=== PATIENT | male | born 1975 | race Caucasian/White ===

== ENCOUNTER → 2022-03-11 11:59 | Outpatient (CLI) | payer OTHER, MEDICAID, SELFPAY ==
[2022-03-11 13:04] LABS: COVID19 -Nasal RAPID Negative (Negative)
== END ==
PROVIDERS: PCP Student in an Organized Health Care Education/Training Program; Referring Provider Student in an Organized Health Care Education/Training Program; Visit Provider Student in an Organized Health Care Education/Training Program
DX: Z20.822 Contact with and (suspected) exposure to COVID-19 (principal)
CPT/HCPCS: 87635; C9803

== ENCOUNTER → 2022-03-12 10:39 | Outpatient (CLI) | payer OTHER, MEDICAID, SELFPAY ==
--- NOTE | 2022-03-17 11:01 | PM.PFT.1 ---
Pulmonary Function Test Referral & Results Date Patient Seen: 03/12/22 Requesting provider: Haseeb Kent Results: The spirometry demonstrates an FVC of 4.0 L which is 86% of predicted. The FEV1 was measured at 3.43 L which is 94% of predicted. The FEV1/FVC ratio was 86 which is 109% of predicted. Following the administration of bronchodilator there was no appreciable change to above normal numbers Lung volumes show an SVC of 4.02 L which is 88% of predicted. The diffusing capacity was measured at 20.27 which is 99% of predicted. The maximum voluntary ventilation was normal Interpretation: This study demonstrates normal pulmonary function
== END ==
PROVIDERS: PCP Student in an Organized Health Care Education/Training Program; Referring Provider Student in an Organized Health Care Education/Training Program; Visit Provider Student in an Organized Health Care Education/Training Program
DX: U07.1 COVID-19 (principal); J12.82 Pneumonia due to coronavirus disease 2019; Z86.16 Personal history of COVID-19
CPT/HCPCS: 94060; 94726; 94729

== ENCOUNTER 2023-02-19 14:33 | Emergency (ER) | payer OTHER, MEDICAID, SELFPAY ==
[2023-02-19] VITALS (8 sets, daily range): BP systolic 137–155; BP diastolic 62–86; PULSE 88–96; RESP 16; TEMP 36.6; O2SAT 93–97; BMI 32.3
[2023-02-19 15:05] LABS: Add Manual Diff / Slide Review NO; Basophils Absolute Auto 0 /uL (0-100); Basophils Percent Auto 0.4 % (0-2); Eosinophils Absolute Auto 400 /uL (0-450); Eosinophils Percent Auto 4.5 % (2-4); Hematocrit 48.2 % (41-53); Hemoglobin 16.5 g/dL (13.5-17.5); Lymphocytes Absolute Auto 1300 /uL (1100-4500); Lymphocytes Percent Auto 13.4 % (25-40); Mean Corpuscular HGB Conc 34.1 % (30-36); Mean Corpuscular Hemoglobin 31.8 PG (26-34); Mean Corpuscular Volume 93.2 fL (80-100); Monocytes Absolute Auto 800 /uL (0-900); Monocytes Percent Auto 8.1 % (3-14); Neutrophils Absolute Auto 6900 /uL (1500-7000); Neutrophils Percent Auto 73.6 % (50-75); Platelet Count 239 X10^3/uL (150-400); Red Blood Cell Count 5.18 X10^6/uL (4.5-5.9); Red Cell Distribution Width 15.1 % (11.6-14.8); White Blood Cell Count 9.4 X10^3/uL (4.5-11.0)
[2023-02-19 15:21] LABS: Alanine Aminotransferase 31 IU/L (<50); Albumin 3.9 g/dL (3.5-5.0); Albumin Globulin Ratio 1.2 (1.0-2.8); Alkaline Phosphatase 66 U/L (38-126); Aspartate Aminotransferase 40 IU/L (17-59); Bilirubin Total 0.6 mg/dL (0.2-1.3); Blood Urea Nitrogen 19 mg/dL (9-20); Calcium 9.8 mg/dL (8.4-10.2); Carbon Dioxide 27 mmol/L (22-32); Chloride 103 mmol/L (98-107); Estimated Glomerular Filt Rate > 60 mL/min (>60); Globulin 3.2 g/dL (1.7-4.1); Glucose 156 mg/dL (70-100); Lipase 427 U/L (23-300); Potassium 4.3 mmol/L (3.4-5.1); Sodium 137 mmol/L (137-145); Total Protein 7.1 g/dL (6.3-8.2)
[2023-02-19 15:22] LABS: HEMOLYSIS 82 (0-50)
[2023-02-19 15:24] LABS: Bacteria Urine Occasional (0-1); Culture Indicated Urine Specimen Cultured; Mucus Urine 1+ (Negative); RBC Urine 1-5/HPF (0-5/HPF); Squamous Epithelial Cell Urine 1-5 /HPF (0-5/HPF); WBC Urine 5-10/HPF (0-5/HPF)
--- NOTE | 2023-02-19 15:27 | DI.CT.S_ITS ---
PROCEDURE: CT KIDNEY URETER BLADDER (KUB) INDICATIONS: Left CVA Tenderness and left abd pain TECHNIQUE: Axial sections were acquired from the lung bases to the pubic symphysis. Coronal and sagittal reformats were performed. For radiation dose reduction, the following was used: automated exposure control, adjustment of mA and/or kV according to patient size. COMPARISON: None. FINDINGS: Image quality: Excellent. Lung bases: Unremarkable. Heart: No significant findings. URINARY: Right Kidney: Nonobstructing right-sided kidney stones are seen that measure up to 7 mm and 300 Hounsfield units. Right Ureter: No hydroureter. Left Kidney: There is moderate left-sided hydronephrosis. Nonobstructing left-sided kidney stones are seen that measure up to 6 mm (200 Hounsfield units). Left Ureter: There is a 6 mm obstructing stone seen at the left ureterovesicular junction, as on series 2, image 76 and on series 4, image 39. This stone demonstrates a density 500 Hounsfield units. There is associated mild to moderate left-sided hydroureter. Bladder: Normal wall thickness. No stones. ABDOMEN: Liver: Unremarkable. Gallbladder: Unremarkable. Biliary ducts: Unremarkable. Pancreas: Unremarkable. Spleen: Unremarkable. Adrenal Glands: Unremarkable. Stomach and Bowel: Stomach, small bowel loops, and colon are unremarkable. Colonic diverticulosis is seen, without findings of active diverticulitis. Peritoneum: No abnormal intraperitoneal fluid. No free air. Ventral Wall: No hernia. Abdominal Nodes: No enlarged retroperitoneal or mesenteric lymph nodes. Vessels: Aorta and inferior vena cava are normal in size. PELVIS: Pelvic Organs: Unremarkable. Pelvic Nodes: Unremarkable. Miscellaneous: No inguinal hernias are seen. Bones: There is S shaped scoliosis. There is a left yuridia vertebral body seen between the T11 and T12 levels. IMPRESSION: There is a 6 mm obstructing stone seen at the left ureterovesicular junction, with associated left-sided hydroureter and hydronephrosis. Nonobstructing bilateral renal stones are seen. Additional findings: Left-sided yuridia vertebral body between T11 and T12 S shaped scoliosis Dictated by: Ru Ramirez M.D. on 02/19/2023 at 15:41 Approved by: Ru Ramirez M.D. on 02/19/2023 at 15:45
[2023-02-19] MEDS: KETOROLAC 30 MG/ML VIAL 15 MG IV (15:31)
--- NOTE | 2023-02-19 15:36 | ED_ITS ---
HPI - Abdominal Pain <VETO Koehler - Last Filed: 02/19/23 17:05> General Chief Complaint: Abdominal Pain Stated Complaint: abdominal pain in left side down into groin Time Seen by Provider: 02/19/23 14:35 History of Present Illness HPI narrative: 48-year-old male presents to the emergency department with left-sided abdominal pain and flank pain on and off x3 days. Patient reports the pain became constant and intolerable earlier today. Patient reports that he has had a kidney stone over 20 years ago and this feels identical. Patient has also reported inconsistent urinary stream and non complete defecation over the last 3 days. Patient endorses that he has a pulling sensation along his left side of abdomen that is resolved with pulling down his left testicle. Patient denies any testicular pain, scrotal swelling, penile discharge or dysuria. 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 Related Data Previous Rx's Medication Instructions Recorded oxycodone-acetaminophen 5 mg-325 1 tab PO Q4-6H PRN pain #10 tabs 02/19/23 mg tablet (Percocet) oxycodone-acetaminophen 5 mg-325 1 tab PO Q4-6H PRN pain #10 tabs 02/19/23 mg tablet (Percocet) tamsulosin 0.4 mg capsule (Flomax) 0.4 mg PO DAILY #7 caps 02/19/23 tamsulosin 0.4 mg capsule (Flomax) 0.4 mg PO DAILY #7 caps 02/19/23 Review of Systems <VETO Koehler - Last Filed: 02/19/23 17:05> Review of Systems Narrative: Narrative: See HPI. GENERAL: Denies chills, fatigue, fever, sweats. HEENT: Denies sinus pain, ear pain, sore throat, difficulty swallowing, dizziness. RESPIRATORY: Denies dyspnea, cough, wheezing, sputum. CARDIOVASCULAR: Denies chest pain, palpitations, edema. GASTROINTESTINAL: Denies nausea, vomiting, diarrhea, constipation. Endorses left-sided abdominal pain. : Denies dysuria, frequency, incontinence, hematuria, urinary retention, penile discharge, testicular pain or scrotal swelling. Endorses left-sided flank pain. MSK: Denies weakness, joint pain, or bony pain. SKIN: Denies rash, skin lesions, or pruritis. NEUROLOGIC: Denies weakness, dizziness, headache, numbness, confusion. Exam <VETO Koehler - Last Filed: 02/19/23 17:05> Narrative Exam Narrative: Exam Narrative: GENERAL: This is a well-nourished, well-developed patient, in no acute distress. HEAD: Atraumatic. Normocephalic. EYES: Pupils equal round and reactive. Extraocular motions intact. No scleral icterus, injection or drainage. ENT: Nose without bleeding, purulent drainage. Airway patent. NECK: Trachea midline. No JVD or lymphadenopathy. Nontender. CARDIOVASCULAR: Regular rate and rhythm without murmurs, peripheral pulses intact, cap refill <2 sec. RESPIRATORY: Breath sounds equal and clear bilaterally. No wheezes, rales, or rhonchi. No cough. No increased respiratory effort. No accessory muscle use. GASTROINTESTINAL: Abdomen soft, non-tender, nondistended without guarding or rebound. No suprapubic pain. Patient is circumcised, no testicular pain, scrotal swelling and with positive cremaster reflex. MSK: Moves all extremities. Normal range of motion, no clubbing or edema. Neurovascularly intact. NEURO: A&O x 3. SKIN: Warm, dry, no rashes or lesions noted. Initial Vital Signs Initial Vital Signs: Vital Signs Pulse Rate 93 H 02/19/23 14:45 Blood Pressure 155/86 H 02/19/23 14:45 Pulse Oximetry 95 02/19/23 14:45 Reviewed <Nicol Luis DO - Last Filed: 02/22/23 07:00> Initial Vital Signs Initial Vital Signs: Vital Signs Pulse Rate 93 H 02/19/23 14:45 Blood Pressure 155/86 H 02/19/23 14:45 Pulse Oximetry 95 02/19/23 14:45 Course <VETO Koehler - Last Filed: 02/19/23 17:05> Orders Ordered: Discontinued Medications Ketorolac Tromethamine (Ketorolac 30 Mg/Ml Vial) 15 mg IV NOW ONE Stop: 02/19/23 15:29 Last Admin: 02/19/23 15:31 Dose: 15 mg Documented By: DIONNA Ondansetron HCl (Ondansetron 4 Mg/2 Ml Inj) 4 mg IV NOW PRN PRN Reason: Nausea And Vomiting Vital Signs Vital signs: Vital Signs - 8 hr 02/19/23 14:53 Temperature 97.8 F Pulse Rate 88 Respiratory Rate 16 Blood Pressure 155/86 H Pulse Oximetry 97 Oxygen Delivery Method Room Air <Nicol Luis DO - Last Filed: 02/22/23 07:00> Orders Ordered: Discontinued Medications Ketorolac Tromethamine (Ketorolac 30 Mg/Ml Vial) 15 mg IV NOW ONE Stop: 02/19/23 15:29 Last Admin: 02/19/23 15:31 Dose: 15 mg Documented By: DIONNA Ondansetron HCl (Ondansetron 4 Mg/2 Ml Inj) 4 mg IV NOW PRN PRN Reason: Nausea And Vomiting Vital Signs Vital signs: Vital Signs - 8 hr 02/19/23 14:53 Temperature 97.8 F Pulse Rate 88 Respiratory Rate 16 Blood Pressure 155/86 H Pulse Oximetry 97 Oxygen Delivery Method Room Air MDM - Abdominal Pain <VETO Koehler - Last Filed: 02/19/23 17:05> Differential Diagnosis Differential diagnosis: Likely abdominal pain, calculus of kidney, constipation, small bowel obstruction and other (UTI) Lab Data 02/19/23 14:44 02/19/23 14:44 Labs: Lab Results 02/19/23 02/19/23 02/19/23 Range/Units 14:44 14:44 14:44 WBC 9.4 (4.5-11.0) X10^3/uL RBC 5.18 (4.5-5.9) X10^6/uL Hgb 16.5 (13.5-17.5) g/dL Hct 48.2 (41-53) % MCV 93.2 (80-100) fL MCH 31.8 (26-34) PG MCHC 34.1 (30-36) % RDW 15.1 H (11.6-14.8) % Plt Count 239 (150-400) X10^3/uL Neut % (Auto) 73.6 (50-75) % Lymph % (Auto) 13.4 L (25-40) % [place] % (Auto) 8.1 (3-14) % Eos % (Auto) 4.5 H (2-4) % Baso % (Auto) 0.4 (0-2) % Neut # (Auto) 6900 (0499-7808) /uL Lymph # (Auto) 1300 (8840-2265) /uL [place] # (Auto) 800 (0-900) /uL Eos # (Auto) 400 (0-450) /uL Baso # (Auto) 0 (0-100) /uL Sodium 137 (137-145) mmol/L Potassium 4.3 (3.4-5.1) mmol/L Chloride 103 (98-107) mmol/L Carbon Dioxide 27 (22-32) mmol/L BUN 19 (9-20) mg/dL Creatinine 1.27 H (0.66-1.25) mg/dL Estimated GFR > 60 (>60) mL/min BUN/Creatinine Ratio 15.0 (6-22) Glucose 156 H (70-100) mg/dL Calcium 9.8 (8.4-10.2) mg/dL Total Bilirubin 0.6 (0.2-1.3) mg/dL AST 40 (17-59) IU/L ALT 31 (<50) IU/L Alkaline Phosphatase 66 (38-126) U/L Total Protein 7.1 (6.3-8.2) g/dL Albumin 3.9 (3.5-5.0) g/dL Globulin 3.2 (1.7-4.1) g/dL Albumin/Globulin Ratio 1.2 (1.0-2.8) Lipase 427 H (23-300) U/L Urine RBC 1-5/hpf (0-5/HPF) Urine WBC 5-10/hpf H (0-5/HPF) Ur Squamous Epith Cells 1-5 /hpf (0-5/HPF) Urine Bacteria Occasional (0-1) (None) Urine Mucus 1+ H (Negative) Ur Culture Indicated? Specimen cultured Point of care testing: Urine Dip Bedside Urine Glucose Negative Bedside Urine Bilirubin - Negative Bedside Urine Ketone +/- 5 Urine Specific [place] 1.025 Bedside Urine Occult Blood +++ Bedside Urine pH 6.0 Bedside Urine Protein + 30 Bedside Urine Urobilinogen - Negative Bedside Urine Nitrite - Negative Bedside Urine Leukocytes - Negative Esterase Imaging Data CT scan - abdomen/pelvis: Radiologist's Impression: [address] [address] [address] Scan Report Signed Patient: Khris Kearney MR#: [id number] : 1975 Acct:[id number] Age/Sex: 48 / M Date of Service: 02/19/23 Loc: ED Accession Number: [id number] ?? Procedure: CT kidney ureter bladder (KUB) Ordering Provider: Calvin Carter PROCEDURE:? CT KIDNEY URETER BLADDER (KUB) ? INDICATIONS:? Left CVA Tenderness and left abd pain ? TECHNIQUE:? Axial sections were acquired from the lung bases to the pubic symphysis.? Coronal and sagittal reformats were performed.? For radiation dose reduction, the following was used: ?automated exposure control, adjustment of mA and/or kV according to patient size.? ? COMPARISON:? None. ? FINDINGS:? Image quality:? Excellent.? ? Lung bases:? Unremarkable.? ? Heart:? No significant findings. ? URINARY: Right Kidney:? Nonobstructing right-sided kidney stones are seen that measure up to 7 mm and 300 Hounsfield units. Right Ureter:? No hydroureter.? ? Left Kidney:? There is moderate left-sided hydronephrosis.? Nonobstructing left- sided kidney stones are seen that measure up to 6 mm (200 Hounsfield units).? Left Ureter:? There is a 6 mm obstructing stone seen at the left ureterovesicular junction, as on series 2, image 76 and on series 4, image 39.? This stone demonstrates a density 500 Hounsfield units.? There is associated mild to moderate left-sided hydroureter.? ? Bladder:? Normal wall thickness. No stones. ? ? ? ABDOMEN: Liver:? Unremarkable.? ? Gallbladder:? Unremarkable.? ? Biliary ducts:? Unremarkable.? ? Pancreas:? Unremarkable.? ? Spleen:? Unremarkable.? ? Adrenal Glands:? Unremarkable.? ? ? Stomach and Bowel:? Stomach, small bowel loops, and colon are unremarkable.? Colonic diverticulosis is seen, without findings of active diverticulitis. Peritoneum:? No abnormal intraperitoneal fluid.? No free air.? ? Ventral Wall: ? No hernia.? Abdominal Nodes:? No enlarged retroperitoneal or mesenteric lymph nodes.? Vessels:? Aorta and inferior vena cava are normal in size.? ? PELVIS: Pelvic Organs:? Unremarkable.? ? Pelvic Nodes: Unremarkable. Miscellaneous: No inguinal hernias are seen. ? ? ? Bones:? There is S shaped scoliosis.? There is a left yuridia vertebral body seen between the T11 and T12 levels. ? IMPRESSION:? ? There is a 6 mm obstructing stone seen at the left ureterovesicular junction, with associated left-sided hydroureter and hydronephrosis. ? Nonobstructing bilateral renal stones are seen. ? ? ? Additional findings:? Left-sided yuridia vertebral body between T11 and T12 S shaped scoliosis ? ? ? Dictated by: Ru Ramirez M.D. on 02/19/2023 at 15:41 ? ? Approved by: Ru Ramirez M.D. on 02/19/2023 at 15:45 ? MDM Narrative Medical decision making narrative: 48-year-old male, with history of kidney stone, presents to the emergency department with left-sided abdominal and CVA tenderness. Assessment was consistent with a kidney stone. Pain controlled with Toradol. CT reveals a 6 mm obstructing stone at the left ureterovesicular junction with associated left- sided hydroureter and hydronephrosis. Will treat with Flomax once daily x7 days, recommendations for Tylenol or ibuprofen for discomfort and a short prescription for Percocet for breakthrough pain. Instructed patient to follow- up with urology on Tuesday morning. Strict instructions that for any worsening symptoms, patient should come back to the emergency department. Patient and spouse verbalized understanding and were agreeable with course of action. <Nicol Luis, DO - Last Filed: 02/22/23 07:00> Lab Data Labs: Lab Results 02/19/23 02/19/23 02/19/23 Range/Units 14:44 14:44 14:44 WBC 9.4 (4.5-11.0) X10^3/uL RBC 5.18 (4.5-5.9) X10^6/uL Hgb 16.5 (13.5-17.5) g/dL Hct 48.2 (41-53) % MCV 93.2 (80-100) fL MCH 31.8 (26-34) PG MCHC 34.1 (30-36) % RDW 15.1 H (11.6-14.8) % Plt Count 239 (150-400) X10^3/uL Neut % (Auto) 73.6 (50-75) % Lymph % (Auto) 13.4 L (25-40) % [place] % (Auto) 8.1 (3-14) % Eos % (Auto) 4.5 H (2-4) % Baso % (Auto) 0.4 (0-2) % Neut # (Auto) 6900 (3456-4642) /uL Lymph # (Auto) 1300 (3586-1284) /uL [place] # (Auto) 800 (0-900) /uL Eos # (Auto) 400 (0-450) /uL Baso # (Auto) 0 (0-100) /uL Sodium 137 (137-145) mmol/L Potassium 4.3 (3.4-5.1) mmol/L Chloride 103 (98-107) mmol/L Carbon Dioxide 27 (22-32) mmol/L BUN 19 (9-20) mg/dL Creatinine 1.27 H (0.66-1.25) mg/dL Estimated GFR > 60 (>60) mL/min BUN/Creatinine Ratio 15.0 (6-22) Glucose 156 H (70-100) mg/dL Calcium 9.8 (8.4-10.2) mg/dL Total Bilirubin 0.6 (0.2-1.3) mg/dL AST 40 (17-59) IU/L ALT 31 (<50) IU/L Alkaline Phosphatase 66 (38-126) U/L Total Protein 7.1 (6.3-8.2) g/dL Albumin 3.9 (3.5-5.0) g/dL Globulin 3.2 (1.7-4.1) g/dL Albumin/Globulin Ratio 1.2 (1.0-2.8) Lipase 427 H (23-300) U/L Urine RBC 1-5/hpf (0-5/HPF) Urine WBC 5-10/hpf H (0-5/HPF) Ur Squamous Epith Cells 1-5 /hpf (0-5/HPF) Urine Bacteria Occasional (0-1) (None) Urine Mucus 1+ H (Negative) Ur Culture Indicated? Specimen cultured Point of care testing: Urine Dip Bedside Urine Glucose Negative Bedside Urine Bilirubin - Negative Bedside Urine Ketone +/- 5 Urine Specific [place] 1.025 Bedside Urine Occult Blood +++ Bedside Urine pH 6.0 Bedside Urine Protein + 30 Bedside Urine Urobilinogen - Negative Bedside Urine Nitrite - Negative Bedside Urine Leukocytes - Negative Esterase ECG Data Interpretation: Dr. Luis-sinus rhythm rate 9 NM 4 QRS [address] changes no T-wave inversions no priors to compare Discharge Plan Departure Patient Disposition: Home Clinical Impression: Calculus of kidney Instructions: DI for Kidney Stones Activity Restrictions/Additional Instructions: *You have been diagnosed with a obstructing 6 mm kidney stone and several nonobstructing stones. I will be prescribing Flomax to be taken once a day for the next 7 days. For the pain, I recommend you take ibuprofen or Tylenol for minor discomfort. I will prescribe Percocet for breakthrough pain. Please contact the urology clinic on Tuesday morning. For any worsening symptoms, please return to the emergency department. *What to do: *Please continue to take your regular medications as directed. [ x] New medication prescriptions sent to your pharmacy: [[facility]] [ ] New medication written as a paper prescription [ ] No new medications given *Please follow up with your primary care provider in 2-3 days, call for an appointment. Let them know you were seen in the Emergency Department and that we ask that you be seen in follow up. We will electronically transmit a record of today's note if your PCP is in our system *If you do not have a primary care provider please contact the [facility] Resource line at [phone]. They will ask some questions about your medical history and help get you set up with a doctor in the community. ? Return to ER if you should have any new, worsening or concerning symptoms, such as worsening pain, severe headache, confusion, chest pain, difficulty breathing, fever greater than 101 F, shaking chills, persistent vomiting to the point that you cannot drink fluids, or other new or worsening symptoms. Prescriptions: New tamsulosin [Flomax] 0.4 mg capsule 0.4 mg PO DAILY Qty: 7 0RF oxycodone-acetaminophen [Percocet] 5-325 mg tablet 1 tab PO Q4-6H PRN (Reason: pain) Qty: 10 0RF tamsulosin [Flomax] 0.4 mg capsule 0.4 mg PO DAILY Qty: 7 0RF oxycodone-acetaminophen [Percocet] 5-325 mg tablet 1 tab PO Q4-6H PRN (Reason: pain) Qty: 10 0RF Referrals: Haseeb Kent [Primary Care Provider] - Quinten Martinez MD [Physician] - Erlin Alexander MD [Physician] - Stand Alone Forms: Patient Portal/API <Nicol Luis DO - Last Filed: 02/22/23 07:00> Cosign ED Attending Cosadelinaature Attestation: I was immediately available in the department for consultation. Documentation h as been reviewed.
== END 2023-02-19 17:14 | disposition home or self-care (01) ==
PROVIDERS: Emergency Provider Registered Nurse; PCP Student in an Organized Health Care Education/Training Program
DX: N20.0 Calculus of kidney (principal); Z87.442 Personal history of urinary calculi; R10.9 Unspecified abdominal pain
CPT/HCPCS: 36415; 74176; 80053; 81003; 81015; 83690; 85025; 87077; 87086; 87147; 93005; 96374; 99284; J1885